=== PATIENT | female | born 1965 | race Caucasian/White ===

== ENCOUNTER 2017-03-07 09:07 | Emergency (ER) | payer BC ==
--- NOTE | 2017-03-07 09:22 | ERPHSYRPT ---
- History of Present Illness Time Seen by Provider: 03/07/17 09:20 Historian: patient Exam Limitations: no limitations Physician History: mild hematuria and dysuria today, no injury, no fever, no blood thinners, no NV , lmp 5 yrs, not dizzy, no abdominal or back pain Timing/Duration: today Activities at Onset: none Quality: burning Allergies/Adverse Reactions: No Known Drug Allergies Allergy (Unverified 11/01/11 20:09) Home Medications: Citalopram Hydrobromide [ceLEXa] 60 mg PO DAILY 05/24/13 [History] Estrogen,Con/M-Progest Acet [Prempro 0.45-1.5 mg Tablet] 1 tab TID 05/24/13 [ History] Diclofenac Sodium 50 mg PO 03/07/17 [History] Divalproex Sodium [Divalproex Sodium ER] 500 mg PO 03/07/17 [History] Propranolol HCl 80 mg PO 03/07/17 [History] Sumatriptan Succinate [Imitrex] 100 mg PO PRN 03/07/17 [History] Tramadol HCl 50 mg [Ultram 50 mg] 50 mg PO Q8HPRN PRN 03/07/17 [History] Hx Tetanus, Diphtheria Vaccination/Date Given: Yes Hx Influenza Vaccination/Date Given: Yes Hx Pneumococcal Vaccination/Date Given: No - Review of Systems Constitutional: No Fever, No Fatigue Respiratory: No Symptoms Cardiac: No Symptoms Abdominal/Gastrointestinal: No Symptoms Genitourinary Symptoms: Dysuria, Hematuria Musculoskeletal: No Symptoms Skin: No Symptoms Neurological: No Dizziness - Past Medical History Pertinent Past Medical History: Yes Neurological History: Migraines ENT History: No Pertinent History Cardiac History: No Pertinent History Respiratory History: No Pertinent History Endocrine Medical History: No Pertinent History Musculoskeletal History: No Pertinent History GI Medical History: Gallbladder Disease History: No Pertinent History Psycho-Social History: Anxiety, Depression Female Reproductive Disorders: No Pertinent History - Past Surgical History Past Surgical History: Yes Neuro Surgical History: No Pertinent History Cardiac: No Pertinent History Respiratory: No Pertinent History Gastrointestinal: Cholecystectomy Genitourinary: No Pertinent History Musculoskeletal: No Pertinent History Female Surgical History: No Pertinent History - Social History Smoking Status: Former smoker Exposure to second hand smoke: No Drug Use: none Patient Lives Alone: No - Nursing Vital Signs Nursing Vital Signs: Initial Vital Signs Temperature 97.9 F 03/07/17 09:11 Pulse Rate 65 03/07/17 09:11 Respiratory Rate 20 03/07/17 09:11 Blood Pressure 135/78 03/07/17 09:11 O2 Sat by Pulse Oximetry 98 03/07/17 09:11 Pain Scale Pain Intensity 0 - Physical Exam General Appearance: no apparent distress Respiratory Exam: No respiratory distress Gastrointestinal/Abdomen Exam: soft, No tenderness Extremity Exam: normal range of motion Neurologic Exam: alert, oriented x 3, cooperative Skin Exam: normal color, warm, dry - Course Nursing assessment & vital signs reviewed: Yes Ordered Tests: Active Orders 24 hr Category Date Time Status HCG,QUALITATIVE URINE Stat Lab 03/07/17 09:30 Completed UA W/ MICROSCOPIC Stat Lab 03/07/17 09:30 Results Lab/Rad Data: Laboratory Results 03/07/17 03/07/17 Range/Units 09:30 09:30 Ur Collection Type CCMS Urine Color YELLOW (YELLOW) Urine Appearance HAZY (CLEAR) Urine pH 5.0 (5-6) Ur Specific [place] 1.005 (1.005-1.025) Urine Protein NEGATIVE (Negative) Urine Ketones NEGATIVE (NEGATIVE) Urine Blood 250 (0-5) Heron/ul Urine Nitrite NEGATIVE (NEGATIVE) Urine Bilirubin NEGATIVE (NEGATIVE) Urine Urobilinogen NORMAL (0-1) mg/dL Ur Leukocyte Esterase 2+ (NEGATIVE) Urine Culture Reflexed Pending Urine Glucose NEGATIVE (NEGATIVE) mg/dL Urine HCG, Qual NEGATIVE (Negative) Specimen Received 0903/07/17 - Progress Progress: unchanged Progress Note: 03/07/17 09:50 differential d/w pt as cancer or occult renal stone Discussed with Dr.: Other (Dr Quiros) Will see patient in: office Counseled pt/family regarding: lab results, diagnosis, need for follow-up - Departure Time of Disposition: 09:50 Departure Disposition: Home Clinical Impression: Cystitis Condition: Stable Critical Care Time: No Referrals: JOSHUA QUIROS [Primary Care Provider] - Additional Instructions: see your doctor, keflex, return if worse, oral fluids
[2017-03-07 09:28] VITALS: BP 135/78; PULSE 65; O2SAT 98
[2017-03-07 09:42] LABS: Collection Type CCMS
[2017-03-07 09:43] LABS: Bilirubin NEGATIVE (NEGATIVE); Blood 250 Ery/ul (0-5); COMPLETE URINE MICROSCOPIC? YES; Glucose NEGATIVE (NEGATIVE); Leukocyte Esterase 2+ (NEGATIVE)
[2017-03-07 09:56] LABS: ADD URINE CULTURE? YES (NO); Bacteria FEW /HPF (NEGATIVE); Epithelial Cells FEW /HPF (FEW); WBC 15-25 /HPF (0-5)
== END 2017-03-07 10:10 | disposition home or self-care (01) ==
LOC: ED 09:07
DX: N30.90 Cystitis, unspecified without hematuria (principal); R31.9 Hematuria, unspecified; R30.0 Dysuria; Z79.899 Other long term (current) drug therapy
CPT/HCPCS: 81000; 84703; 87077; 87086; 87186; 99283

== ENCOUNTER 2023-07-28 15:20 | Day surgery (SDC) | payer BC ==
[2023-07-28] MEDS ORDERED: BUPIVACAINE 0.5% VIAL IJ ONE (15:21)
[2023-07-28] MEDS ORDERED: Depo-Medrol 40 MG/ML IM ONE (15:21)
[2023-07-28] MEDS ORDERED: LIDOCAINE HCL 1% 50 MG/5 ML VL PF IJ ONE (15:21)
--- NOTE | 2023-07-28 18:47 | XRAY ---
Indication: Right SI joint injection Intraoperative fluoroscopy provided for 9 seconds. Single digital spot image submitted for interpretation demonstrates posterior needle tip projecting over the right SI joint with small amount of contrast injected for needle tip placement. Correlate with intraoperative findings/report.
--- NOTE | 2023-07-29 08:50 | XRAY ---
9 seconds of fluoroscopy was used in surgery for a right sacroiliac joint injection.
== END 2023-07-28 17:25 | disposition home or self-care (01) ==
LOC: SDC-PAIN 15:20
PROVIDERS: ATTEND Psychiatry & Neurology Pain Medicine
DX: M46.1 Sacroiliitis, not elsewhere classified (principal)
CPT/HCPCS: 27096; 72170; 77002; J1010; J2001; Q9966; G0260

== ENCOUNTER 2023-09-22 11:37 | Day surgery (SDC) | payer BC ==
[2023-09-22] MEDS ORDERED: Xylocaine-Mpf 2% 5 Ml Vial IJ ONE (11:38)
[2023-09-22] MEDS ORDERED: Decadron 4 MG INJ IV ONE (11:38)
[2023-09-22] MEDS ORDERED: DIPRIVAN 200 MG/20 ML IV ONE (13:11)
--- NOTE | 2023-09-22 14:45 | XRAY ---
Indication: Right C2-C4 MBB. Intraoperative fluoroscopy provided for 13 seconds. 4 digital spot image submitted for interpretation demonstrates posterior needle tips projecting over the expected right C2-C4 nerve roots. Correlate with intraoperative findings/report.
[2023-09-22] MEDS ORDERED: Lactated Ringers 1,000 ML IV ONE (15:06)
--- NOTE | 2023-09-22 16:44 | XRAY ---
13 seconds of fluoroscopy was used in surgery for a right C2-C4 MBB.
== END 2023-09-22 13:38 | disposition home or self-care (01) ==
LOC: SDC-PAIN 11:37
PROVIDERS: ATTEND Psychiatry & Neurology Pain Medicine
DX: M47.812 Spondylosis without myelopathy or radiculopathy, cervical region (principal)
CPT/HCPCS: 64490; 64491; 72040; 77002; J1100; J2704

== ENCOUNTER 2023-11-03 11:37 | Day surgery (SDC) | payer BC ==
[2023-11-03] MEDS ORDERED: BUPIVACAINE 0.5% VIAL IJ ONE (11:38)
[2023-11-03] MEDS ORDERED: Decadron 4 MG INJ IV ONE (11:38)
[2023-11-03] MEDS ORDERED: DIPRIVAN 200 MG/20 ML IV ONE (13:17)
[2023-11-03] MEDS ORDERED: Lactated Ringers 1,000 ML IV ONE (13:49)
--- NOTE | 2023-11-03 14:58 | XRAY ---
Indication: Right C2-C4 MBB. Intraoperative fluoroscopy provided for 15 seconds. 2 digital spot image submitted for interpretation demonstrates posterior needle tips projecting over the expected right C2-C4 nerve roots. Correlate with intraoperative findings/report.
--- NOTE | 2023-11-03 16:52 | XRAY ---
15 seconds of fluoroscopy was used in surgery for a right C2-C4 MBB.
== END 2023-11-03 13:50 | disposition home or self-care (01) ==
LOC: SDC-PAIN 11:37
PROVIDERS: ATTEND Psychiatry & Neurology Pain Medicine
DX: M47.812 Spondylosis without myelopathy or radiculopathy, cervical region (principal)
CPT/HCPCS: 64490; 64491; 72040; 77002; J1100; J2704

== ENCOUNTER 2023-12-08 12:27 | Day surgery (SDC) | payer BC ==
[2023-12-08] MEDS ORDERED: LIDOCAINE HCL 1% 50 MG/5 ML VL PF IJ ONE (12:28)
[2023-12-08] MEDS ORDERED: BUPIVACAINE 0.5% VIAL IJ ONE (12:28)
[2023-12-08] MEDS ORDERED: Decadron 4 MG INJ IV ONE (12:28)
[2023-12-08] MEDS ORDERED: DIPRIVAN 200 MG/20 ML IV ONE (13:46)
--- NOTE | 2023-12-08 14:54 | XRAY ---
Indication: Right C2-C4 RFA. Intraoperative fluoroscopy provided for 20 seconds. 2 digital spot image submitted for interpretation demonstrates posterior needle tips projecting over expected right C2-C4 nerve roots. Correlate with intraoperative findings/report.
[2023-12-08] MEDS ORDERED: Lactated Ringers 1,000 ML IV ONE (15:01)
--- NOTE | 2023-12-08 15:26 | XRAY ---
20 seconds of fluoroscopy was used in surgery for a right C2-C4 RFA.
== END 2023-12-08 14:27 | disposition home or self-care (01) ==
LOC: SDC-PAIN 12:27
PROVIDERS: ATTEND Psychiatry & Neurology Pain Medicine
DX: M47.812 Spondylosis without myelopathy or radiculopathy, cervical region (principal)
CPT/HCPCS: 64633; 64634; 72040; 77002; J1100; J2001; J2704